=== PATIENT | male | born 1945 | race African-American/Black ===

== ENCOUNTER 2019-01-31 14:56 | Emergency (ER) | payer OTHER ==
[~2019-01-31] VITALS: Ht 180.3 cm; Wt 69.0 kg
[2019-01-31] MEDS ORDERED: KEPPSOL GT (14:59)
[2019-01-31] MEDS ORDERED: ATOR20TA PO (14:59)
[2019-01-31] MEDS ORDERED: ONDANSETRON HCL 4MG/2ML INJ IV STA (15:10)
[2019-01-31] MEDS ORDERED: SODIUM CHLORIDE 0.9% 1,000 ML IV ONE (15:10)
[2019-01-31 15:32] LABS: BASOPHILS % 0.6 % (0.0-2.0); EOSINOPHILS % 4.6 % (0.0-5.0); HEMATOCRIT. 38.1 % (42.0-52.0); HEMOGLOBIN. 13.3 g/dL (14.0-18.0); MEAN CORPUSCULAR HEMOGLOBIN 34.5 pg (28.0-32.0); MEAN CORPUSCULAR VOLUME 98.7 fL (80.0-94.0); MEAN PLATELET VOLUME 8.8 fl (7.4-10.4); MONOCYTES % 10.8 % (2.0-8.0); PLATELET 132 x1000/uL (130-400); RED BLOOD CELL COUNT 3.86 mill/uL (4.7-6.1); RED CELL DISTRIBUTION WIDTH 13.1 % (11.6-14.6)
[2019-01-31 15:33] LABS: CHLORIDE 107 mEq/L (98-107); INR 1.1; PROTHROMBIN TIME 11.3 sec (9.6-11.0)
[2019-01-31 15:36] LABS: ETHANOL BLOOD < 10 mg/dL
[2019-01-31 15:39] LABS: LDL CHOLESTEROL 68 mg/dL (5-100)
[2019-01-31] MEDS ORDERED: SODIUM CHLORIDE 0.9% 1,000 ML IV NR (15:48)
[2019-01-31] MEDS ORDERED: LORAZEPAM 2MG/ML CPJ IV NR (16:00)
[2019-01-31] MEDS ORDERED: LEVETIRACETAM 1000MG/100ML 100 ML IV NR ×2 (16:00)
[2019-01-31] MEDS ORDERED: PROPOFOL 10MG/ML 100ML 100 ML IV SCH ×2 (17:00→19:15)
[2019-01-31] MEDS ORDERED: PROPOFOL 200MG/20ML VIAL IV ONE (17:00)
[2019-01-31] MEDS ORDERED: SUCCINYLCHOLINE CHLORIDE 200MG/10ML IV ONE (17:01)
[2019-01-31 17:33] LABS: CLARITY URINE CLEAR (CLEAR); COLOR URINE YELLOW (YELLOW); KETONES URINE NEGATIVE (NEGATIVE); LEUKOCYTE ESTERASE URINE NEGATIVE (NEGATIVE); NITRITE URINE NEGATIVE (NEGATIVE); OCCULT BLOOD URINE NEGATIVE (NEGATIVE); PH URINE 6.5 (4.5-8.0); PROTEIN URINE NEGATIVE (NEGATIVE); SPECIFIC GRAVITY URINE 1.021 (1.005-1.030)
[2019-01-31 17:45] LABS: CANNABINOID URINE SCREEN NEGATIVE (NEGATIVE); PHENCYCLIDINE URINE SCREEN NEGATIVE (NEGATIVE)
[2019-01-31 17:46] LABS: BG BASE EXCESS -6.3 mmol/L (-2.0-2.0); BG CARBOXYHEMOGLOBIN 0.5 % (0.5-1.5); BG DEOXYHEMOGLOBIN 0.9 % (0.0-5.0); BG METHEMOGLOBIN 0.3 % (0.0-1.5); BG OXYGEN SATURATION 99.1 % (92.0-98.5); BG OXYHEMOGLOBIN 98.3 % (94.0-97.0); BG PCO2 42.9 mmHg (35.0-45.0); BG PH 7.287 (7.350-7.450); BG PO2 199.5 mmHg (75.0-100.0); BG SAMPLE SITE RIGHT RADIAL; BG TIDAL VOLUME(mL) 500 mL; BG TOTAL HEMOGLOBIN 13.5 g/dL (12.0-18.0); BG VENT MODE VENT - A/C; BG VENT RATE 12 set
[2019-01-31 17:46] LABS: *AMPHETAMINES SCREEN URINE NEGATIVE (NEGATIVE); *BARBITURATES SCREEN URINE PRESUMTIVE POSITIVE (NEGATIVE); *BENZODIAZEPINES SCREEN URINE NEGATIVE (NEGATIVE); *COCAINE SCREEN URINE NEGATIVE (NEGATIVE); METHADONE URINE SCREEN NEGATIVE (NEGATIVE); OPIATES URINE SCREEN NEGATIVE (NEGATIVE)
[2019-01-31 19:20] VITALS: BP_DIAS 119
[2019-01-31 19:55] VITALS: BP_SYST 151
== END 2019-01-31 20:00 | disposition short-term general hospital (02) ==
LOC: ER 15:08 → EDBEDREQ 15:13 → CANBEDREQ 16:29 → ER 20:00
DX: G40.901 Epilepsy, unspecified, not intractable, with status epilepticus (principal); J96.90 Respiratory failure, unspecified, unspecified whether with hypoxia or hypercapnia; I10 Essential (primary) hypertension; E78.00 Pure hypercholesterolemia, unspecified; I69.351 Hemiplegia and hemiparesis following cerebral infarction affecting right dominant side
CPT/HCPCS: 31500; 36415; 36600; 51702; 70450; 71045; 80053; 80305; 80320; 81003; 82375; 82805; 82962; 83721; 84484; 85025; 85610; 93005; 94002; 96365; 96366; 96375; 99291; J0330; J1953; J2060; J2405; J2704; J7030; G0480

== ENCOUNTER 2019-04-22 07:18 | Emergency (ER) | payer OTHER ==
[~2019-04-22] VITALS: Ht 170.2 cm; Wt 73.0 kg
[~2019-04-22 07:18] MED LIST: ATOR20TA PO; KEPPSOL GT
[2019-04-22] MEDS ORDERED: LEVETIRACETAM 1000MG/100ML 100 ML IV ONE (07:45)
[2019-04-22 08:26] LABS: CLARITY URINE CLEAR (CLEAR); COLOR URINE AMBER (YELLOW); KETONES URINE TRACE (NEGATIVE); LEUKOCYTE ESTERASE URINE NEGATIVE (NEGATIVE); NITRITE URINE NEGATIVE (NEGATIVE); OCCULT BLOOD URINE NEGATIVE (NEGATIVE); PROTEIN URINE NEGATIVE (NEGATIVE); SPECIFIC GRAVITY URINE 1.026 (1.005-1.030)
[2019-04-22 08:27] LABS: BASOPHILS % 0.7 % (0.0-2.0); EOSINOPHILS % 0.6 % (0.0-5.0); HEMOGLOBIN. 13.3 g/dL (14.0-18.0); LYMPHOCYTES % 23.3 % (20.0-50.0); MEAN CORPUSCULAR HEMOGLOBIN 34.1 pg (28.0-32.0); MEAN CORPUSCULAR VOLUME 97.9 fL (80.0-94.0); MEAN PLATELET VOLUME 8.5 fl (7.4-10.4); NEUTROPHILS % 68.4 % (40.0-76.0); PLATELET 134 x1000/uL (130-400); RED BLOOD CELL COUNT 3.89 mill/uL (4.7-6.1); RED CELL DISTRIBUTION WIDTH 12.7 % (11.6-14.6)
[2019-04-22 08:30] LABS: CHLORIDE 108 mEq/L (98-107)
[2019-04-22 08:39] LABS: ETHANOL BLOOD < 10 mg/dL
[2019-04-22 09:08] LABS: *BENZODIAZEPINES SCREEN URINE PRESUMTIVE POSITIVE (NEGATIVE)
[2019-04-22 09:12] LABS: *AMPHETAMINES SCREEN URINE NEGATIVE (NEGATIVE); *BARBITURATES SCREEN URINE PRESUMTIVE POSITIVE (NEGATIVE); *COCAINE SCREEN URINE NEGATIVE (NEGATIVE); CANNABINOID URINE SCREEN NEGATIVE (NEGATIVE); METHADONE URINE SCREEN NEGATIVE (NEGATIVE); OPIATES URINE SCREEN NEGATIVE (NEGATIVE); PHENCYCLIDINE URINE SCREEN NEGATIVE (NEGATIVE)
[2019-04-22 12:40] VITALS: BP 158/87
== END 2019-04-22 15:52 | disposition short-term general hospital (02) ==
LOC: ER 07:35
DX: G40.909 Epilepsy, unspecified, not intractable, without status epilepticus (principal); I10 Essential (primary) hypertension; E78.00 Pure hypercholesterolemia, unspecified; Z86.73 Personal history of transient ischemic attack (TIA), and cerebral infarction without residual deficits
CPT/HCPCS: 36415; 70450; 80053; 80305; 80320; 81003; 85025; 96365; 99285; J1953; G0480

== ENCOUNTER 2019-04-27 11:37 | Emergency (ER) | payer OTHER ==
[~2019-04-27] VITALS: Ht 180.3 cm; Wt 90.0 kg
[2019-04-27] MEDS ORDERED: SODIUM CHLORIDE 0.9% 1000ML BAG (SEPSIS BOLUS) IV ONE (12:15)
[2019-04-27 12:50] LABS: BASOPHILS % 0.5 % (0.0-2.0); EOSINOPHILS % 0.8 % (0.0-5.0); HEMATOCRIT. 35.9 % (42.0-52.0); HEMOGLOBIN. 12.7 g/dL (14.0-18.0); LYMPHOCYTES % 17.9 % (20.0-50.0); MEAN CORPUSCULAR HEMOGLOBIN 34.9 pg (28.0-32.0); MEAN CORPUSCULAR VOLUME 98.2 fL (80.0-94.0); MEAN PLATELET VOLUME 8.8 fl (7.4-10.4); MONOCYTES % 10.1 % (2.0-8.0); NEUTROPHILS % 70.7 % (40.0-76.0); PLATELET 107 x1000/uL (130-400); RED BLOOD CELL COUNT 3.66 mill/uL (4.7-6.1); RED CELL DISTRIBUTION WIDTH 12.7 % (11.6-14.6)
[2019-04-27 12:55] LABS: INR 1.1; PROTHROMBIN TIME 11.5 sec (9.6-11.0)
[2019-04-27 13:05] LABS: CHLORIDE 107 mEq/L (98-107)
[2019-04-27 13:07] LABS: ETHANOL BLOOD < 10 mg/dL
[2019-04-27 16:49] VITALS: BP 147/87
== END 2019-04-27 17:06 | disposition short-term general hospital (02) ==
LOC: ER 14:21 → CANBEDREQ 17:19
DX: R41.82 Altered mental status, unspecified (principal); G40.909 Epilepsy, unspecified, not intractable, without status epilepticus; I10 Essential (primary) hypertension; E78.00 Pure hypercholesterolemia, unspecified; Z86.73 Personal history of transient ischemic attack (TIA), and cerebral infarction without residual deficits
CPT/HCPCS: 36415; 70450; 71045; 80053; 80307; 80320; 80329; 82140; 82962; 83605; 83690; 84443; 84484; 85025; 85610; 87040; 93005; 96360; 96361; 99285; J7030; G0480

== ENCOUNTER 2019-06-26 11:45 | Emergency (ER) | payer OTHER ==
[~2019-06-26] VITALS: Ht 167.6 cm; Wt 80.5 kg
[2019-06-26 12:22] LABS: BASOPHILS % 0.7 % (0.0-2.0); EOSINOPHILS % 6.1 % (0.0-5.0); HEMATOCRIT. 37.2 % (42.0-52.0); LYMPHOCYTES % 28.5 % (20.0-50.0); MEAN CORPUSCULAR HEMOGLOBIN 34.7 pg (28.0-32.0); MEAN PLATELET VOLUME 9.9 fl (7.4-10.4); MONOCYTES % 10.3 % (2.0-8.0); NEUTROPHILS % 54.4 % (40.0-76.0); PLATELET 133 x1000/uL (130-400); RED BLOOD CELL COUNT 3.76 mill/uL (4.7-6.1); RED CELL DISTRIBUTION WIDTH 12.6 % (11.6-14.6)
[2019-06-26 12:31] LABS: INR 1.1; PARTIAL THROMBOPLASTIN TIME 20.9 sec (23.4-31.0); PROTHROMBIN TIME 11.1 sec (9.6-11.0)
[2019-06-26 12:32] LABS: CHLORIDE 109 mEq/L (98-107)
[2019-06-26 12:40] LABS: LDL CHOLESTEROL 66 mg/dL (5-100)
[2019-06-26] MEDS ORDERED: LEVETIRACETAM 500MG PREMIX 100 ML IV ONE (13:00)
[2019-06-26] MEDS ORDERED: ASPIRIN 300MG SUPP PR ONE (13:30)
[2019-06-26] MEDS ORDERED: IOHEXOL-350 100 ML BOTTLE ONE (13:41)
[2019-06-26 15:16] VITALS: BP 143/72
== END 2019-06-26 15:37 | disposition short-term general hospital (02) ==
LOC: ER 11:45 → CANBEDREQ 15:54
DX: R41.82 Altered mental status, unspecified (principal); E78.00 Pure hypercholesterolemia, unspecified; I10 Essential (primary) hypertension; Z86.73 Personal history of transient ischemic attack (TIA), and cerebral infarction without residual deficits
CPT/HCPCS: 36415; 70450; 70496; 70498; 71045; 80053; 80184; 82962; 83721; 84484; 85025; 85610; 85730; 86850; 86900; 86901; 93005; 96365; 96366; 99291; J1953; Q9967